=== PATIENT | female | born 1970 | race Caucasian/White ===

== ENCOUNTER 2021-04-09 11:36 | Inpatient (IN) | payer OTHER ==
[~2021-04-09] VITALS: Ht 167.6 cm; Wt 70.8 kg
[~2021-04-09 11:36] MED LIST: DOCUSATE SODIU250 MG PO; IBUPROFEN600 MG PO; NORCO 10-325 T1 EACH PO; PERCOCET 10-321 EACH PO; PERCOCET 5/325 T1 EA PO; SUBOXONE 8 MG-1 EACH SL; ZOFRAN4 MG PO
[2021-04-09 13:40] LABS: HEMOGLOBIN 13.6 gm/dl (12.3-15.3); RED BLOOD COUNT 4.22 M/UL (4.00-5.10); WHITE BLOOD COUNT 4.1 K/UL (4.5-11.0)
[2021-04-09 13:56] LABS: BUN/CREATININE RATIO 19 (0-10)
[2021-04-09] MEDS ORDERED: SUBOXONE 8 MG-1 EACH SL (17:02)
[2021-04-09] MEDS ORDERED: IBUPROFEN800 MG PO (17:02)
[2021-04-09] MEDS ORDERED: PROMETHAZINE-D473 M1 PO (19:55)
--- NOTE | 2021-04-09 21:57 | NUR ---
DURING ADMISSION AND GOING OVER HER HOME MEDICATIONS, PT SAID SHE HAD HER SUBOXONE 8MG-2MG 0.75 FILM SL DAILY. SHE SAID SHE HASN'T TAKEN IT IN A COUPLE DAYS, SAID SHE FELT TOO BAD. I ASK HER NOT TO TAKE ANY SINCE IT WOULDN'T BE DUE UNTIL THE AM. AND THAT WE WOULD NOTIFY DR. FERNANDEZ AND NOTIFY PHARMACY IN CASE THEY WANT TO DO TNF HOME MEDICATION. SHE SAID SHE WOULDN'T TAKE IT UNTIL WE HEARD BACK FROM THE DOCTOR IN THE MORNING. MEDICATION LEFT WITH PATIENT SINCE SHE IS COVID POSITIVE.
[2021-04-10 07:48] LABS: BUN/CREATININE RATIO 27 (0-10)
[2021-04-10 07:51] LABS: HEMOGLOBIN 13.9 gm/dl (12.3-15.3); RED BLOOD COUNT 4.46 M/UL (4.00-5.10); WHITE BLOOD COUNT 4.5 K/UL (4.5-11.0)
[2021-04-12 06:03] LABS: HEMOGLOBIN 13.2 gm/dl (12.3-15.3); RED BLOOD COUNT 4.2 M/UL (4.00-5.10)
[2021-04-12 06:11] LABS: BUN/CREATININE RATIO 29 (0-10)
[2021-04-12 06:13] LABS: WHITE BLOOD COUNT 9.5 K/UL (4.5-11.0)
[2021-04-12] MEDS ORDERED: DECADRON6 MG PO (10:33)
== END 2021-04-12 15:08 | disposition home or self-care (01) | DRG 177 ==
LOC: ER1 11:36 → MED SURG 4 14:52 → CDU 14:52 → MED SURG 4 20:34
PROVIDERS: Physician Assistant; ADMIT Internal Medicine
PROC: XW033E5 Introduction of Remdesivir Anti-infective into Peripheral Vein, Percutaneous Approach, New Technology Group 5 (ICD-10-PCS; principal; 2021-04-09)
PROC: XW033E6 Introduction of Etesevimab Monoclonal Antibody into Peripheral Vein, Percutaneous Approach, New Technology Group 6 (ICD-10-PCS; 2021-04-09)
PROC: 3E0333Z Introduction of Anti-inflammatory into Peripheral Vein, Percutaneous Approach (ICD-10-PCS; 2021-04-09)
DX: U07.1 COVID-19 (principal); J96.01 Acute respiratory failure with hypoxia; J12.82 Pneumonia due to coronavirus disease 2019; F17.290 Nicotine dependence, other tobacco product, uncomplicated; Z99.81 Dependence on supplemental oxygen; Z71.6 Tobacco abuse counseling; Z23 Encounter for immunization; Z79.1 Long term (current) use of non-steroidal anti-inflammatories (NSAID)
CPT/HCPCS: 36600; 71045; 80048; 81001; 82803; 83605; 83735; 85025; 87040; 93005; 94760; 96374; 96375; 99285; J0456; J0696; J1100; J1650; J1885; J2405; J2543; J7030; M0245